=== PATIENT | male | born 1995 | race Caucasian/White ===

== ENCOUNTER 2018-04-01 12:38 | Observation (INO) | payer OTHER ==
[2018-04-01] MEDS ORDERED: Sodium Chloride 0.9% 2.5 ML Syringe FLUSH PRN ×2 (12:39→16:50)
[2018-04-01] MEDS ORDERED: Sodium Chloride 0.9% 10 ML Syringe FLUSH PRN ×2 (12:39→16:50)
[2018-04-01] MEDS ORDERED: Sodium Chloride 0.9% 1,000 ML IV ONE ×2 (12:41→13:46)
[2018-04-01] MEDS ORDERED: Ondansetron 4 MG/2 ML SDV IVPUSH ONE (12:42)
[2018-04-01] MEDS ORDERED: Albuterol/Ipratropium 3.0-0.5 MG/3 ML Neb Soln NEB ONE (12:50)
[2018-04-01] MEDS ORDERED: Ketorolac 30 MG/ML SDV IVPUSH ONE (12:50)
--- NOTE | 2018-04-01 12:53 | EDM.PDOC ---
<Alisa Terry - Last Filed: 04/01/18 13:18> ED HPI GENERAL MEDICAL PROBLEM - General Stated Complaint: INJURY AT WORK Time Seen by Provider: 04/01/18 12:48 - History of Present Illness INITIAL COMMENTS - FREE TEXT/NARRATIVE: This is Dr. Terry dictating an addendum note as I'm the supervising physician on this case and arrived seen this patient. I agree with history and physical as above and the patient ambulated into the ED. He was speaking in full sentences and had complaints as above of headache nausea and vomiting and only minimal shortness of breath. Poison control was contacted by me at 12:45 PM and they recommend symptomatic care mostly oxygen therapy symptomatic care of any pain and discomfort and bronchodilators as needed. They did not recommend steroids with this exposure but only symptomatic care. Patient's labs and x-ray have been reviewed by me and I agree with the care plan for observation. - Related Data Allergies Allergy/AdvReac Type Severity Reaction Status Date / Time No Known Allergies Allergy Verified 12/08/14 07:53 Home Meds: Home Meds SUMAtriptan Succinate [Imitrex] 4 mg SQ 12/08/14 [History] Course - Vital Signs Last Recorded V/S: Last Vital Signs Temp 36.1 C 04/01/18 12:40 Pulse 70 04/01/18 13:44 Resp 16 04/01/18 13:44 BP 134/62 04/01/18 13:44 Pulse Ox 100 04/01/18 13:44 - Orders/Labs/Meds Orders: Active Orders 24 hr Category Date Time Status Patient Status [ADT] Stat ADT 04/01/18 13:43 Active EKG Documentation Completion [RC] STAT Care 04/01/18 12:40 Active Oxygen Therapy, ED [RC] ASDIRECTED Care 04/01/18 12:40 Active RT Aerosol Therapy [RC] ASDIRECTED Care 04/01/18 12:50 Active Head wo Cont [CT] Stat Exams 04/01/18 13:23 Ordered DRUG SCREEN, URINE [URCHEM] Stat Lab 04/01/18 12:40 Ordered UA W/MICROSCOPIC [URIN] Stat Lab 04/01/18 12:40 Ordered Sodium Chloride 0.9% [Normal Saline] 1,000 ml Med 04/01/18 13:46 Active IV STAT Sodium Chloride 0.9% [Saline Flush] Med 04/01/18 12:39 Active 10 ml FLUSH ASDIRECTED PRN Sodium Chloride 0.9% [Saline Flush] Med 04/01/18 12:39 Active 2.5 ml FLUSH ASDIRECTED PRN Saline Lock Insert [OM.PC] Stat Oth 04/01/18 12:40 Ordered Medication Orders Sodium Chloride (Normal Saline) 1,000 mls @ 999 mls/hr IV STAT ONE Stop: 04/01/18 14:46 Sodium Chloride (Saline Flush) 10 ml FLUSH ASDIRECTED PRN PRN Reason: Keep Vein Open Last Admin: 04/01/18 12:57 Dose: 10 ml Sodium Chloride (Saline Flush) 2.5 ml FLUSH ASDIRECTED PRN PRN Reason: Keep Vein Open Last Admin: 04/01/18 12:57 Dose: 2.5 ml Labs: Laboratory Tests 04/01/18 04/01/18 04/01/18 Range/Units 12:45 12:52 12:52 WBC 8.04 (4.0-11.0) K/uL RBC 5.71 (4.50-5.90) M/uL Hgb 16.6 (13.0-17.0) g/dL Hct 46.1 (38.0-50.0) % MCV 80.7 (80.0-98.0) fL MCH 29.1 (27.0-32.0) pg MCHC 36.0 (31.0-37.0) g/dL RDW Std Deviation 38.2 (28.0-62.0) fl RDW Coeff of Rachel 13 (11.0-15.0) % Plt Count 215 (150-400) K/uL MPV 9.70 (7.40-12.00) fL Neut % (Auto) 51.4 (48.0-80.0) % Lymph % (Auto) 40.0 (16.0-40.0) % [place] % (Auto) 6.5 (0.0-15.0) % Eos % (Auto) 1.7 (0.0-7.0) % Baso % (Auto) 0.4 (0.0-1.5) % Neut # (Auto) 4.1 (1.4-5.7) K/uL Lymph # (Auto) 3.2 H (0.6-2.4) K/uL [place] # (Auto) 0.5 (0.0-0.8) K/uL Eos # (Auto) 0.1 (0.0-0.7) K/uL Baso # (Auto) 0.0 (0.0-0.1) K/uL Nucleated RBC % 0.0 /100WBC Nucleated RBCs # 0 K/uL ABG pH 7.471 H (7.35-7.45) ABG pCO2 31 L (35-45) mmHG ABG pO2 275 H (75-100) mmHG ABG HCO3 23 (22-26) mEq/L ABG Total CO2 19.3 ABG Base Excess 0.2 (-2.0-2.0) ABG Carboxyhemoglobin 1.5 (0-15) % Sodium 138 (136-148) mmol/L Potassium 3.9 (3.5-5.1) mmol/L Chloride 101 (98-107) mmol/L Carbon Dioxide 25.4 (21.0-32.0) mmol/L BUN 23 H (7.0-18.0) mg/dL Creatinine 1.2 (0.8-1.3) mg/dL Est Cr Clr Drug Dosing 101.97 mL/min Estimated GFR (MDRD) > 60.0 ml/min Glucose 103 (74-106) mg/dL Calcium 10.0 (8.5-10.1) mg/dL Total Bilirubin 1.1 H (0.2-1.0) mg/dL AST 41 H (15-37) IU/L ALT 70 H (14-63) IU/L Alkaline Phosphatase 75 (46-116) U/L Ammonia (19-54) ug/dL B-Natriuretic Peptide (<100) PG/ML Total Protein 8.2 (6.4-8.2) g/dL Albumin 4.8 (3.4-5.0) g/dL Globulin 3.4 (2.0-3.5) g/dL Albumin/Globulin Ratio 1.4 (1.3-2.8) Amylase 60 (25-115) U/L Lipase 148 (73-393) U/L TSH 3rd Generation 2.44 (0.36-3.74) uIU/mL 04/01/18 04/01/18 Range/Units 12:52 12:52 WBC (4.0-11.0) K/uL RBC (4.50-5.90) M/uL Hgb (13.0-17.0) g/dL Hct (38.0-50.0) % MCV (80.0-98.0) fL MCH (27.0-32.0) pg MCHC (31.0-37.0) g/dL RDW Std Deviation (28.0-62.0) fl RDW Coeff of Rachel (11.0-15.0) % Plt Count (150-400) K/uL MPV (7.40-12.00) fL Neut % (Auto) (48.0-80.0) % Lymph % (Auto) (16.0-40.0) % [place] % (Auto) (0.0-15.0) % Eos % (Auto) (0.0-7.0) % Baso % (Auto) (0.0-1.5) % Neut # (Auto) (1.4-5.7) K/uL Lymph # (Auto) (0.6-2.4) K/uL [place] # (Auto) (0.0-0.8) K/uL Eos # (Auto) (0.0-0.7) K/uL Baso # (Auto) (0.0-0.1) K/uL Nucleated RBC % /100WBC Nucleated RBCs # K/uL ABG pH (7.35-7.45) ABG pCO2 (35-45) mmHG ABG pO2 (75-100) mmHG ABG HCO3 (22-26) mEq/L ABG Total CO2 ABG Base Excess (-2.0-2.0) ABG Carboxyhemoglobin (0-15) % Sodium (136-148) mmol/L Potassium (3.5-5.1) mmol/L Chloride (98-107) mmol/L Carbon Dioxide (21.0-32.0) mmol/L BUN (7.0-18.0) mg/dL Creatinine (0.8-1.3) mg/dL Est Cr Clr Drug Dosing mL/min Estimated GFR (MDRD) ml/min Glucose (74-106) mg/dL Calcium (8.5-10.1) mg/dL Total Bilirubin (0.2-1.0) mg/dL AST (15-37) IU/L ALT (14-63) IU/L Alkaline Phosphatase (46-116) U/L Ammonia 39 (19-54) ug/dL B-Natriuretic Peptide < 15 (<100) PG/ML Total Protein (6.4-8.2) g/dL Albumin (3.4-5.0) g/dL Globulin (2.0-3.5) g/dL Albumin/Globulin Ratio (1.3-2.8) Amylase (25-115) U/L Lipase (73-393) U/L TSH 3rd Generation (0.36-3.74) uIU/mL Meds: Medications Generic Name Dose Route Start Last Admin Trade Name Freq PRN Reason Stop Dose Admin Sodium Chloride 1,000 mls @ 999 mls/hr 04/01/18 13:46 Normal Saline IV 04/01/18 14:46 STAT ONE Sodium Chloride 10 ml 04/01/18 12:39 04/01/18 12:57 Saline Flush FLUSH 10 ml ASDIRECTED PRN Administration Keep Vein Open Sodium Chloride 2.5 ml 04/01/18 12:39 04/01/18 12:57 Saline Flush FLUSH 2.5 ml ASDIRECTED PRN Administration Keep Vein Open Discontinued Medications Generic Name Dose Route Start Last Admin Trade Name Karla PRN Reason Stop Dose Admin Albuterol/Ipratropium 3 ml 04/01/18 12:50 04/01/18 12:57 Duoneb 3.0-0.5 Mg/3 Ml NEB 04/01/18 12:51 3 ml ONETIME ONE Administration Sodium Chloride 1,000 mls @ 999 mls/hr 04/01/18 12:41 04/01/18 12:55 Normal Saline IV 04/01/18 13:41 999 mls/hr STAT ONE Administration Ketorolac Tromethamine 30 mg 04/01/18 12:50 04/01/18 12:57 Toradol IVPUSH 04/01/18 12:51 30 mg ONETIME ONE Administration Ondansetron HCl 4 mg 04/01/18 12:42 04/01/18 12:55 Zofran IVPUSH 04/01/18 12:43 4 mg ONETIME ONE Administration Departure - Departure Disposition: Refer to Observation Clinical Impression: Chemical exposure - Discharge Information - My Orders Last 24 Hours: My Active Orders 04/01/18 12:39 Sodium Chloride 0.9% [Saline Flush] 10 ml FLUSH ASDIRECTED PRN Sodium Chloride 0.9% [Saline Flush] 2.5 ml FLUSH ASDIRECTED PRN 04/01/18 12:40 EKG Documentation Completion [RC] STAT Oxygen Therapy, ED [RC] ASDIRECTED DRUG SCREEN, URINE [URCHEM] Stat UA W/MICROSCOPIC [URIN] Stat Saline Lock Insert [OM.PC] Stat 04/01/18 12:50 RT Aerosol Therapy [RC] ASDIRECTED 04/01/18 13:23 Head wo Cont [CT] Stat 04/01/18 13:43 Patient Status [ADT] Stat 04/01/18 13:46 Sodium Chloride 0.9% [Normal Saline] 1,000 ml IV STAT - Assessment/Plan Last 24 Hours: My Active Orders 04/01/18 12:39 Sodium Chloride 0.9% [Saline Flush] 10 ml FLUSH ASDIRECTED PRN Sodium Chloride 0.9% [Saline Flush] 2.5 ml FLUSH ASDIRECTED PRN 04/01/18 12:40 EKG Documentation Completion [RC] STAT Oxygen Therapy, ED [RC] ASDIRECTED DRUG SCREEN, URINE [URCHEM] Stat UA W/MICROSCOPIC [URIN] Stat Saline Lock Insert [OM.PC] Stat 04/01/18 12:50 RT Aerosol Therapy [RC] ASDIRECTED 04/01/18 13:23 Head wo Cont [CT] Stat 04/01/18 13:43 Patient Status [ADT] Stat 04/01/18 13:46 Sodium Chloride 0.9% [Normal Saline] 1,000 ml IV STAT <Conchita Driscoll - Last Filed: 04/01/18 13:48> ED HPI GENERAL MEDICAL PROBLEM - General Source of Information: Reports: Patient History Limitations: Reports: No Limitations - History of Present Illness INITIAL COMMENTS - FREE TEXT/NARRATIVE: HISTORY AND PHYSICAL: []22-year-old male presenting with concern over exposure to H2 as gas History of Present Illness: []Patient becoming more confused while in the emergency department Patient has had hand surgery in the past Complaining of headache and nausea Dr. Terry was at bedside to reexamine the patient is well/poison control has been contacted. Review of Systems: As per history of present illness and below otherwise all systems reviewed and negative. Past medical history: As per history of present illness and as reviewed below otherwise noncontributory. Surgical history: As per history of present illness and as reviewed below otherwise noncontributory. Social history: No reported history of drug or alcohol abuse. Family history: As per history of present illness and as reviewed below otherwise noncontributory. Physical exam: Alert patient is stripped of clothing and wash off. Is having difficulty with confusion. Patient states he did not have any protective gear on. He Cannot answer when asked if he was outside or in an enclosed building. Patient is complaining of a headache. HEENT: Atraumatic, normocehpalic, pupils reactive, negative for conjunctival pallor or scleral icterus, mucous membranes moist, throat clear, neck supple, nontender, trachea midline. Lungs: Clear to auscultation, breath sounds equal bilaterally diminished, chest non tender. Heart: S1S2, regular, negative for clicks, rubs, or JVD. Abdomen: Soft, nondistended, nontender. Negative for masses or hepatossplenmegaly. Negative for costovertebral tenderness. Pelvis: Stable nontender. Genitourinary: Deferred. Rectal: Deferred Extremities: Atraumatic, negative for cords or calf pain. Neurovascular unremarkable. Neuro: Awake, alert, oriented. Cranial nerves II through XII unremarkable. Cerebellum unremarkable. Motor and sensory unremarkable throughout. Exam nonfocal. Have discussed this patient with Dr. Diaz and she will come to the emergency department to reevaluate. She has accepted the patient observqation/ICU. Patient had CT of his head as requested by Dr. Diaz. And she will follow up with this result. Diagnostics: []CBC CMP was lipase ABGs chest x-ray Therapeutics: []IV fluids Zofran DuoNeb Toradol Impression: []: Exposure H2s exposure Plan: []admit observation-ICU Definitive disposition and diagnosis as appropriate pending reevaluation and review of above. Onset: Today, Sudden Duration: Minutes: (10), Getting Worse Location: Reports: Chest, Generalized, Other Quality: Reports: Ache Severity: Moderate Improves with: Reports: None Worsens with: Reports: None Associated Symptoms: Reports: Confusion, Nausea/Vomiting Headache Pain Score (Numeric/FACES): 6 ED ROS GENERAL - Review of Systems Review Of Systems: ROS reveals no pertinent complaints other than HPI. ED EXAM, GENERAL - Physical Exam Exam: See Below (see dictation) EKG INTERPRETATION EKG Date: 04/01/18 Rhythm: Other (Sinus arrhythmia) Rate (Beats/Min): 76 Comparison: NA - No Prior EKG Course - Vital Signs Last Recorded V/S: Last Vital Signs Temp 36.1 C 04/01/18 12:40 Pulse 70 04/01/18 13:44 Resp 16 04/01/18 13:44 BP 134/62 04/01/18 13:44 Pulse Ox 100 04/01/18 13:44 - Orders/Labs/Meds Labs: Laboratory Tests 04/01/18 04/01/18 04/01/18 Range/Units 12:45 12:52 12:52 WBC 8.04 (4.0-11.0) K/uL RBC 5.71 (4.50-5.90) M/uL Hgb 16.6 (13.0-17.0) g/dL Hct 46.1 (38.0-50.0) % MCV 80.7 (80.0-98.0) fL MCH 29.1 (27.0-32.0) pg MCHC 36.0 (31.0-37.0) g/dL RDW Std Deviation 38.2 (28.0-62.0) fl RDW Coeff of Rachel 13 (11.0-15.0) % Plt Count 215 (150-400) K/uL MPV 9.70 (7.40-12.00) fL Neut % (Auto) 51.4 (48.0-80.0) % Lymph % (Auto) 40.0 (16.0-40.0) % [place] % (Auto) 6.5 (0.0-15.0) % Eos % (Auto) 1.7 (0.0-7.0) % Baso % (Auto) 0.4 (0.0-1.5) % Neut # (Auto) 4.1 (1.4-5.7) K/uL Lymph # (Auto) 3.2 H (0.6-2.4) K/uL [place] # (Auto) 0.5 (0.0-0.8) K/uL Eos # (Auto) 0.1 (0.0-0.7) K/uL Baso # (Auto) 0.0 (0.0-0.1) K/uL Nucleated RBC % 0.0 /100WBC Nucleated RBCs # 0 K/uL ABG pH 7.471 H (7.35-7.45) ABG pCO2 31 L (35-45) mmHG ABG pO2 275 H (75-100) mmHG ABG HCO3 23 (22-26) mEq/L ABG Total CO2 19.3 ABG Base Excess 0.2 (-2.0-2.0) ABG Carboxyhemoglobin 1.5 (0-15) % Sodium 138 (136-148) mmol/L Potassium 3.9 (3.5-5.1) mmol/L Chloride 101 (98-107) mmol/L Carbon Dioxide 25.4 (21.0-32.0) mmol/L BUN 23 H (7.0-18.0) mg/dL Creatinine 1.2 (0.8-1.3) mg/dL Est Cr Clr Drug Dosing 101.97 mL/min Estimated GFR (MDRD) > 60.0 ml/min Glucose 103 (74-106) mg/dL Calcium 10.0 (8.5-10.1) mg/dL Total Bilirubin 1.1 H (0.2-1.0) mg/dL AST 41 H (15-37) IU/L ALT 70 H (14-63) IU/L Alkaline Phosphatase 75 (46-116) U/L Ammonia (19-54) ug/dL B-Natriuretic Peptide (<100) PG/ML Total Protein 8.2 (6.4-8.2) g/dL Albumin 4.8 (3.4-5.0) g/dL Globulin 3.4 (2.0-3.5) g/dL Albumin/Globulin Ratio 1.4 (1.3-2.8) Amylase 60 (25-115) U/L Lipase 148 (73-393) U/L TSH 3rd Generation 2.44 (0.36-3.74) uIU/mL 04/01/18 04/01/18 Range/Units 12:52 12:52 WBC (4.0-11.0) K/uL RBC (4.50-5.90) M/uL Hgb (13.0-17.0) g/dL Hct (38.0-50.0) % MCV (80.0-98.0) fL MCH (27.0-32.0) pg MCHC (31.0-37.0) g/dL RDW Std Deviation (28.0-62.0) fl RDW Coeff of Rachel (11.0-15.0) % Plt Count (150-400) K/uL MPV (7.40-12.00) fL Neut % (Auto) (48.0-80.0) % Lymph % (Auto) (16.0-40.0) % [place] % (Auto) (0.0-15.0) % Eos % (Auto) (0.0-7.0) % Baso % (Auto) (0.0-1.5) % Neut # (Auto) (1.4-5.7) K/uL Lymph # (Auto) (0.6-2.4) K/uL [place] # (Auto) (0.0-0.8) K/uL Eos # (Auto) (0.0-0.7) K/uL Baso # (Auto) (0.0-0.1) K/uL Nucleated RBC % /100WBC Nucleated RBCs # K/uL ABG pH (7.35-7.45) ABG pCO2 (35-45) mmHG ABG pO2 (75-100) mmHG ABG HCO3 (22-26) mEq/L ABG Total CO2 ABG Base Excess (-2.0-2.0) ABG Carboxyhemoglobin (0-15) % Sodium (136-148) mmol/L Potassium (3.5-5.1) mmol/L Chloride (98-107) mmol/L Carbon Dioxide (21.0-32.0) mmol/L BUN (7.0-18.0) mg/dL Creatinine (0.8-1.3) mg/dL Est Cr Clr Drug Dosing mL/min Estimated GFR (MDRD) ml/min Glucose (74-106) mg/dL Calcium (8.5-10.1) mg/dL Total Bilirubin (0.2-1.0) mg/dL AST (15-37) IU/L ALT (14-63) IU/L Alkaline Phosphatase (46-116) U/L Ammonia 39 (19-54) ug/dL B-Natriuretic Peptide < 15 (<100) PG/ML Total Protein (6.4-8.2) g/dL Albumin (3.4-5.0) g/dL Globulin (2.0-3.5) g/dL Albumin/Globulin Ratio (1.3-2.8) Amylase (25-115) U/L Lipase (73-393) U/L TSH 3rd Generation (0.36-3.74) uIU/mL Departure - Departure Time of Disposition: 13:47 Condition: Good
--- NOTE | 2018-04-01 13:03 | CR ---
EXAMINATION: Portable chest radiograph. HISTORY: Shortness of breath. FINDINGS: The trachea is midline. The cardiomediastinal silhouette is within normal limits. No pulmonary infilt rates, effusions or pneumothorax. Osseous structures appear unremarkable. IMPRESSION: No acute cardiopulmonary process.
[2018-04-01 13:40] LABS: CHLORIDE,CL 101 mmol/L (98-107); SODIUM,NA 138 mmol/L (136-148)
--- NOTE | 2018-04-01 13:56 | CT ---
EXAMINATION: Non contrast CT head. Coronal and sagittal reformats. HISTORY: Pain FINDINGS: No evidence of intra or extra axial hemorrhage, mass, midline shift, hydrocephalus or edema. No hypoattenuation changes in the major vascular territories to suggest acute infarct. No abnormal intracranial calcifications are detected. No evidence of substantial vascular calcificat ions. Paranasal sinuses and mastoid air cells are well aerated without substantial findings. The orbits an d globes are symmetric. Pituitary fossa appears unremarkable. Calvarium is intact. No evidence of skull fracture. IMPRESSION: No acute intracranial findings.
[2018-04-01] MEDS ORDERED: Albuterol/Ipratropium 3.0-0.5 MG/3 ML Neb Soln NEB PRN (16:50)
[2018-04-01] MEDS ORDERED: Morphine 2 MG/ML Syringe IVPUSH PRN (16:50)
[2018-04-01] MEDS ORDERED: Enoxaparin 40 MG/0.4 ML Syringe SUBCUT SCH (17:00)
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
[2018-04-01] MEDS: Lactated Ringers 1,000 ML IV SCH (19:03)
[2018-04-01] MEDS ORDERED: Ondansetron 4 MG/2 ML SDV IVPUSH PRN (21:07)
[2018-04-01] MEDS: Acetaminophen 325 MG Tab PO PRN (21:33)
[2018-04-02] MEDS: Lactated Ringers 1,000 ML IV SCH (03:13)
[2018-04-02 07:40] LABS: CHLORIDE,CL 108 mmol/L (98-107); SODIUM,NA 140 mmol/L (136-148)
[2018-04-02] MEDS: Acetaminophen 325 MG Tab PO PRN (08:27)
[2018-04-02 11:36] VITALS: BP 106/55
[2018-04-02] MEDS ORDERED: Acetaminophen 325 MG Tab PO PRN (13:01)
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
== END 2018-04-02 14:15 | disposition home or self-care (01) ==
LOC: MW.ED 12:38 → MW.ICU 13:43
PROVIDERS: ADMIT Internal Medicine; ATTEND Internal Medicine
DX: R11.2 Nausea with vomiting, unspecified (principal); R06.4 Hyperventilation; R51 Headache; Z77.098 Contact with and (suspected) exposure to other hazardous, chiefly nonmedicinal, chemicals; Z79.899 Other long term (current) drug therapy
CPT/HCPCS: 36415; 36600; 70450; 71045; 80053; 80305; 81001; 82140; 82150; 82375; 82803; 83690; 83735; 83880; 84100; 84443; 85025; 93005; 96361; 96374; 96375; 99285; A9270; J1650; J1885; J2405; J7040; J7120; 96372; 96376; G0378; J7620-GY

== ENCOUNTER 2019-05-27 04:37 | Emergency (ER) | payer OTHER ==
[2019-05-27] MEDS ORDERED: Ketorolac 30 MG/ML SDV IVPUSH ONE (04:45)
[2019-05-27] MEDS ORDERED: Albuterol/Ipratropium 3.0-0.5 MG/3 ML Neb Soln NEB ONE ×2 (04:46→05:54)
[2019-05-27] MEDS ORDERED: Sodium Chloride 0.9% 1,000 ML IV ONE (04:46)
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
[2019-05-27] MEDS ORDERED: Acetaminophen/Codeine 120-12 MG/5 ML Soln 5 ML UD Cup PO ONE (05:55)
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
[2019-05-27 06:17] VITALS: BP 132/77; PULSE 110
== END 2019-05-27 06:17 | disposition home or self-care (01) ==
LOC: MW.ED 04:37
DX: T59.811A Toxic effect of smoke, accidental (unintentional), initial encounter (principal); J70.5 Respiratory conditions due to smoke inhalation; G43.909 Migraine, unspecified, not intractable, without status migrainosus; Y92.89 Other specified places as the place of occurrence of the external cause
CPT/HCPCS: 36600; 71045; 82375; 82803; 93005; 94640; 96361; 96374; 99284; A9270; J1885; J7040; J7620-GY

== ENCOUNTER 2020-04-11 16:09 | Emergency (ER) | payer SELFPAY ==
[2020-04-11] MEDS ORDERED: Albuterol 6.7 GM Inhaler INH ONE (16:39)
[2020-04-11] MEDS ORDERED: Sodium Chloride 0.9% 10 ML Syringe FLUSH PRN (16:40)
[2020-04-11] MEDS ORDERED: Sodium Chloride 0.9% 2.5 ML Syringe FLUSH PRN (16:40)
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
[2020-04-11] MEDS ORDERED: Albuterol HFA 18 Gm Inhaler ONE (16:59)
[2020-04-11 17:13] LABS: BLOOD UREA NITROGEN,BUN 9 mg/dL (7.0-18.0); CHLORIDE,CL 105 mmol/L (98-107); GLUCOSE RANDOM 92 mg/dL (74-106); POTASSIUM,K 3.9 mmol/L (3.5-5.1); SODIUM,NA 141 mmol/L (136-148)
[2020-04-11] MEDS ORDERED: Albuterol HFA 18 Gm Inhaler INH ONE (17:15)
--- NOTE | 2020-04-11 18:02 | CR ---
Chest: Portable view of the chest was obtained. Comparison: Prior chest x-ray of 05/27/19. Heart size and mediastinum are normal. Lungs are clear with no acute parenchymal change. Bony structures are grossly intact. Impression: 1. Nothing acute is seen on portable chest x-ray. Diagnostic code #1 This report was dictated in MDT
[2020-04-11 19:52] VITALS: BP 127/55; PULSE 85
== END 2020-04-11 19:52 | disposition home or self-care (01) ==
LOC: MW.ED 16:09
DX: U07.1 COVID-19 (principal); J40 Bronchitis, not specified as acute or chronic; J21.9 Acute bronchiolitis, unspecified
CPT/HCPCS: 36415; 71045; 71045-26; 80053; 83880; 85025; 87804; 99284-25; J3535-GY; U0002